=== PATIENT | female | born 1985 | race African-American/Black ===

== ENCOUNTER 2016-07-24 09:14 | Emergency (ER) | payer BC, OTHER ==
[2008-08-06 23:35] VITALS: BP 109/62
[~2016-07-24] VITALS: Ht 162.6 cm; Wt 61.8 kg
[~2016-07-24 09:14] MED LIST: ACETAMINOPHEN W1 TA6 PO; ALBUTEROL0.09 MG/A1 IH; AMITIZA24 MCG PO; ATENOLOL50 MG PO; BCP TD; BIRTH CONTROL PILL; BIRTH CONTROL PILLS; COUMADIN 22.5 MG/TAB PO; DARVOCET-N-101 UDTAB PO; EYE DROPS; FLEXERIL; HYDROCODONE/APAP; MIRALAX 17GM PK1 PKT PO; MIRCETTE; NORCO 325 MG-51 TAB PO; PROAIR HFA0.09 MG/AC IH; TYLENOL 500MG500 MG PO; VENTOLIN0.09 MG IH; VERAPAMIL; ZYRTEC; ZYRTEC 10MG PO; [UNRECOGNIZED DRUG - OTHER]; magic mouthwash
[2016-07-24 09:23] VITALS: TEMP 98.1
[2016-07-24] MEDS ORDERED: ZOLOFT 50MG50 MG PO (09:26)
[2016-07-24] MEDS ORDERED: ADDERALL XR 10M10 MG PO (09:26)
[2016-07-24] MEDS ORDERED: VERAPAMIL PO (09:27)
[2016-07-24] MEDS ORDERED: MAG-OX 400400 MG/TAB PO (09:27)
[2016-07-24 10:26] LABS: BASO % 0.6 % (0.0-2.0); EOS # 0.1 (0.0-0.7); EOS % 2.7 % (0-4.0); GRAN # 2.9 (1.4-6.5); GRAN % 60.1 % (42.2-75.2); HEMATOCRIT 35.9 % (37.0-47.0); HEMOGLOBIN 11.8 g/dl (12.5-16.0); LYMPH # 1.4 (1.2-3.4); LYMPH % 29.3 % (20.0-51.0); MEAN CELL VOLUME 92 fl (80.0-100.0); MEAN CORPUSCULAR HEMOGLOBIN 30 pg (27.0-31.0); MEAN CORPUSCULAR HGB CONC 33 g/dl (33.0-37.0); MEAN PLATELET VOLUME 9.9 fl (7.4-10.4); MONO # 0.3 (0.1-0.6); MONO % 7.1 % (1.7-9.3); PLATELET COUNT 241 K/mm3 (130-400); RED BLOOD COUNT 3.89 M/mm3 (4.10-5.30); REDCELL DISTRIBUTION WIDTH-CV 13.5 % (11.5-14.5); WHITE BLOOD COUNT 4.8 K/mm3 (4.8-10.8)
[2016-07-24 10:31] LABS: ADJUSTED CALCIUM 9.4 mg/dL (8.4-10.2); ALBUMIN 3.9 gm/dL (3.5-5.0); BILIRUBIN,TOTAL 0.7 mg/dL (0.0-1.0); CALCIUM 9.3 mg/dL (8.4-10.2); CREATININE, serum 0.76 mg/dL (0.52-1.25); TOTAL PROTEIN 7.5 gm/dL (6.4-8.2)
[2016-07-24 10:34] LABS: PH 5 (5-8); SQUAMOUS EPITHELIAL 0-2 /hpf; URINE APPEARANCE Hazy; URINE BACTERIA None Seen /hpf; URINE BILIRUBIN Negative (NEGATIVE); URINE BLOOD 3+ (NEGATIVE); URINE COLOR Yellow; URINE GLUCOSE Negative (NEGATIVE); URINE KETONE Negative (NEGATIVE); URINE RBC >50 /hpf; URINE UROBILINOGEN Negative (NEGATIVE); URINE WBC 0-2 /hpf
[2016-07-24 12:27] VITALS: BP 122/75; PULSE 78
== END 2016-07-24 12:35 | disposition home or self-care (01) ==
LOC: COL.ER 09:14
PROVIDERS: Emergency Medicine
DX: K59.00 Constipation, unspecified (principal)
CPT/HCPCS: J7030; Q9967

== ENCOUNTER → 2019-04-07 | Outpatient (CLI) | payer BC ==
[~2019-04-07] MED LIST changes: +ADDERALL XR 10M10 MG PO; +MAG-OX 400400 MG/TAB PO; +VERAPAMIL PO; +ZOLOFT 50MG50 MG PO
== END ==
LOC: COL.RAD 12:05
DX: G43.909 Migraine, unspecified, not intractable, without status migrainosus (principal)

== ENCOUNTER → 2019-11-26 | Outpatient (CLI) | payer BC | LOC: COL.LAB 07:31 | DX: R51 Headache (principal); R06.02 Shortness of breath; R53.83 Other fatigue; Z20.828 Contact with and (suspected) exposure to other viral communicable diseases ==

== ENCOUNTER → 2020-01-04 | Outpatient (CLI) | payer BC | LOC: COL.LAB 08:18 | DX: Z20.828 Contact with and (suspected) exposure to other viral communicable diseases (principal); R51 Headache; R53.1 Weakness; R53.83 Other fatigue ==

== ENCOUNTER → 2020-02-18 | Outpatient (CLI) | payer BC | LOC: COL.LAB 11:43 | DX: R51 Headache (principal); R53.1 Weakness; R53.83 Other fatigue; Z20.828 Contact with and (suspected) exposure to other viral communicable diseases ==

== ENCOUNTER 2020-03-20 18:08 | Emergency (ER) | payer SELFPAY ==
[2008-08-06 23:35] VITALS: BP 109/62
[~2020-03-20] VITALS: Ht 162.6 cm; Wt 75.0 kg
[2020-03-20] MEDS ORDERED: ZANAFLEX2 MG PO (19:09)
[2020-03-20 20:00] VITALS: BP 132/74; PULSE 84; TEMP 97.6
== END 2020-03-20 20:03 | disposition home or self-care (01) ==
LOC: COL.ER 18:08
DX: M25.511 Pain in right shoulder (principal); M62.838 Other muscle spasm; R51.9 Headache, unspecified; F32.9 Major depressive disorder, single episode, unspecified; F41.9 Anxiety disorder, unspecified; J45.909 Unspecified asthma, uncomplicated; F90.9 Attention-deficit hyperactivity disorder, unspecified type; R40.2410 Glasgow coma scale score 13-15, unspecified time; V49.88XA Car occupant (driver) (passenger) injured in other specified transport accidents, initial encounter
CPT/HCPCS: J1885

== ENCOUNTER → 2020-07-18 | Outpatient (CLI) | payer BC ==
[~2020-07-18] MED LIST changes: +CEFTIN500 MG PO; +PERCOCET 325 MG1 TA2 PO; +ROBAXIN 50500 MG/TAB PO; +TYLENOL 325MG325 MG PO; +ZANAFLEX2 MG PO; +ZYRTEC 10MG10 MG PO
== END ==
LOC: COL.RAD 13:40
DX: R55 Syncope and collapse (principal)
CPT/HCPCS: A9585

== ENCOUNTER 2020-08-20 03:43 | Emergency (ER) | payer MEDICAID ==
[2008-08-06 23:35] VITALS: BP 109/62
[~2020-08-20] VITALS: Ht 162.6 cm; Wt 79.1 kg
[~2020-08-20 03:43] MED LIST changes: -CEFTIN500 MG PO; -PERCOCET 325 MG1 TA2 PO; -ROBAXIN 50500 MG/TAB PO; -TYLENOL 325MG325 MG PO; -ZYRTEC 10MG10 MG PO
[2020-08-20] MEDS ORDERED: ZYRTEC 10MG10 MG PO (04:13)
[2020-08-20 04:20] LABS: BASO % 0.5 % (0.0-2.0); EOS # 0.2 (0.0-0.7); EOS % 2.1 % (0-4.0); GRAN # 4.9 (1.4-6.5); GRAN % 60.7 % (42.2-75.2); HEMATOCRIT 38.2 % (37.0-47.0); HEMOGLOBIN 12.2 g/dl (12.5-16.0); LYMPH # 2.3 (1.2-3.4); LYMPH % 28.8 % (20.0-51.0); MEAN CELL VOLUME 94 fl (80.0-100.0); MEAN CORPUSCULAR HEMOGLOBIN 30 pg (27.0-31.0); MEAN CORPUSCULAR HGB CONC 32 g/dl (33.0-37.0); MEAN PLATELET VOLUME 9.4 fl (7.4-10.4); MONO # 0.6 (0.1-0.6); MONO % 7.7 % (1.7-9.3); PLATELET COUNT 277 K/mm3 (130-400); RED BLOOD COUNT 4.07 M/mm3 (4.10-5.30)
[2020-08-20 04:32] LABS: CALCIUM 9.2 mg/dL (8.4-10.2); CREATININE, serum 0.79 (0.52-1.25); POTASSIUM 3.9 mmol/L (3.4-5.0)
[2020-08-20] MEDS ORDERED: ROBAXIN 50500 MG/TAB PO (05:34)
[2020-08-20] MEDS ORDERED: TYLENOL 325MG325 MG PO (05:34)
[2020-08-20 05:53] VITALS: BP 103/61; PULSE 87; TEMP 98.3
== END 2020-08-20 05:53 | disposition home or self-care (01) ==
LOC: COL.ER 03:43
PROVIDERS: Emergency Medicine
DX: S00.03XA Contusion of scalp, initial encounter (principal); R55 Syncope and collapse; Z88.8 Allergy status to other drugs, medicaments and biological substances; Z88.1 Allergy status to other antibiotic agents; Z88.6 Allergy status to analgesic agent; W19.XXXA Unspecified fall, initial encounter
CPT/HCPCS: J1885; J2060; J2405; J7030

== ENCOUNTER 2020-10-10 21:17 | Emergency (ER) | payer MEDICAID ==
[2008-08-06 23:35] VITALS: BP 109/62
[~2020-10-10] VITALS: Ht 162.6 cm; Wt 79.5 kg
[~2020-10-10 21:17] MED LIST changes: +ROBAXIN 50500 MG/TAB PO; +TYLENOL 325MG325 MG PO; +ZYRTEC 10MG10 MG PO
[2020-10-10 21:20] VITALS: TEMP 98
[2020-10-10 21:58] LABS: BASO % 0.5 % (0.0-2.0); EOS # 0.2 (0.0-0.7); EOS % 2.4 % (0-4.0); GRAN # 5.2 (1.4-6.5); GRAN % 62.8 % (42.2-75.2); HEMATOCRIT 37.2 % (37.0-47.0); HEMOGLOBIN 12.4 g/dl (12.5-16.0); LYMPH # 2.3 (1.2-3.4); MEAN CELL VOLUME 90 fl (80.0-100.0); MEAN CORPUSCULAR HEMOGLOBIN 30 pg (27.0-31.0); MEAN CORPUSCULAR HGB CONC 33 g/dl (33.0-37.0); MEAN PLATELET VOLUME 9.3 fl (7.4-10.4); MONO # 0.5 (0.1-0.6); MONO % 6.1 % (1.7-9.3); PLATELET COUNT 315 K/mm3 (130-400); RED BLOOD COUNT 4.14 M/mm3 (4.10-5.30); REDCELL DISTRIBUTION WIDTH-CV 13.4 % (11.5-14.5)
[2020-10-10 22:10] LABS: ALANINE AMINOTRANSFERASE 12 U/L (4-34); ALBUMIN 4.4 gm/dL (3.5-5.0); ALKALINE PHOSPHATASE 81 U/L (50-136); ANION GAP 8 mmol/L (7-16); AST,SGOT 30 U/L (15-37); BILIRUBIN,TOTAL 0.4 mg/dL (0.0-1.0); BLOOD UREA NITROGEN 12 mg/dL (7-17); CALCIUM 9.1 mg/dL (8.4-10.2); CARBON DIOXIDE 25 mmol/L (22-30); CHLORIDE 106 mmol/L (98-107); CREATININE, serum 0.75 (0.52-1.25); GLUCOSE 91 mg/dL (74-106); LIPASE 86 U/L (23-300); POTASSIUM 4.2 mmol/L (3.4-5.0); SODIUM 139 mmol/L (137-145); TOTAL PROTEIN 8.3 gm/dL (6.4-8.2)
[2020-10-10 22:12] LABS: COLLECTION METHOD CLEAN CATCH
[2020-10-10 22:19] LABS: MUCOUS Present /lpf; PH 5 (5-8); SQUAMOUS EPITHELIAL 0-2 /hpf; URINE APPEARANCE Clear; URINE BACTERIA None Seen /hpf; URINE BILIRUBIN Negative (NEGATIVE); URINE BLOOD 2+ (NEGATIVE); URINE COLOR Yellow; URINE GLUCOSE Negative (NEGATIVE); URINE KETONE Negative (NEGATIVE); URINE LEUKOCYTE ESTERASE Negative (NEGATIVE); URINE NITRATE Negative (NEGATIVE); URINE PROTEIN(semi-quant) Negative (NEGATIVE); URINE UROBILINOGEN Negative (NEGATIVE)
[2020-10-10 23:28] LABS: TROPONIN-I < 0.012 ng/mL (0.000-0.035)
[2020-10-10 23:48] VITALS: BP 128/61; PULSE 81
== END 2020-10-10 23:48 | disposition home or self-care (01) ==
LOC: COL.ER 21:17
PROVIDERS: Nurse Practitioner Primary Care
DX: R07.89 Other chest pain (principal); R06.02 Shortness of breath; R00.0 Tachycardia, unspecified; J45.909 Unspecified asthma, uncomplicated; G89.29 Other chronic pain; M54.9 Dorsalgia, unspecified; G43.909 Migraine, unspecified, not intractable, without status migrainosus; F32.9 Major depressive disorder, single episode, unspecified; F41.9 Anxiety disorder, unspecified; Z88.8 Allergy status to other drugs, medicaments and biological substances; Z88.1 Allergy status to other antibiotic agents; Z88.6 Allergy status to analgesic agent; Z91.040 Latex allergy status
CPT/HCPCS: J1885; J7030

== ENCOUNTER 2021-01-10 16:58 | Emergency (ER) | payer MEDICAID ==
[~2021-01-10] VITALS: Ht 162.6 cm; Wt 79.5 kg
[2021-01-10 17:11] VITALS: TEMP 98.4
[2021-01-10 18:20] VITALS: BP 114/64; PULSE 71
== END 2021-01-10 18:21 | disposition home or self-care (01) ==
LOC: COL.ER 16:58
DX: M79.632 Pain in left forearm (principal); M54.2 Cervicalgia; V48.0XXA Car driver injured in noncollision transport accident in nontraffic accident, initial encounter

== ENCOUNTER 2021-02-22 20:39 | Emergency (ER) | payer MEDICAID ==
[~2021-02-22] VITALS: Ht 162.6 cm; Wt 79.5 kg
[2021-02-22 22:31] LABS: COLLECTION METHOD CLEAN CATCH
[2021-02-22 22:34] LABS: BASO % 0.4 % (0.0-2.0); EOS # 0.1 (0.0-0.7); EOS % 1.7 % (0-4.0); GRAN # 4.8 (1.4-6.5); GRAN % 58.1 % (42.2-75.2); HEMATOCRIT 37.9 % (37.0-47.0); HEMOGLOBIN 12.9 g/dl (12.5-16.0); LYMPH # 2.8 (1.2-3.4); LYMPH % 33.7 % (20.0-51.0); MEAN CELL VOLUME 88 fl (80.0-100.0); MEAN CORPUSCULAR HEMOGLOBIN 30 pg (27.0-31.0); MEAN CORPUSCULAR HGB CONC 34 g/dl (33.0-37.0); MEAN PLATELET VOLUME 9.2 fl (7.4-10.4); MONO # 0.5 (0.1-0.6); MONO % 5.9 % (1.7-9.3); PLATELET COUNT 323 K/mm3 (130-400); RED BLOOD COUNT 4.31 M/mm3 (4.10-5.30); REDCELL DISTRIBUTION WIDTH-CV 14.2 % (11.5-14.5)
[2021-02-22 22:38] LABS: MUCOUS Present /lpf; PH 5 (5-8); URINE APPEARANCE Cloudy; URINE BACTERIA None Seen /hpf; URINE BILIRUBIN Negative (NEGATIVE); URINE BLOOD 2+ (NEGATIVE); URINE COLOR Yellow; URINE GLUCOSE Negative (NEGATIVE); URINE KETONE 1+ (NEGATIVE); URINE LEUKOCYTE ESTERASE 3+ (NEGATIVE); URINE NITRATE Negative (NEGATIVE); URINE PROTEIN(semi-quant) Negative (NEGATIVE); URINE UROBILINOGEN Negative (NEGATIVE)
[2021-02-22 22:57] LABS: ALBUMIN 4.1 gm/dL (3.5-5.0); C-REACTIVE PROTEIN 0.7 mg/dL (0.00-0.50); CALCIUM 9.6 mg/dL (8.4-10.2); CREATININE, serum 0.81 mg/dL (0.57-1.11); POTASSIUM 3.7 mmol/L (3.5-4.5)
[2021-02-22 23:07] LABS: BILIRUBIN,TOTAL 0.7 mg/dL (0.2-1.2)
[2021-02-23] MEDS ORDERED: CEFTIN500 MG PO (00:55)
[2021-02-23] MEDS ORDERED: PERCOCET 325 MG1 TA2 PO (00:55)
[2021-02-23 01:59] VITALS: BP 119/79; PULSE 89; TEMP 97.7
== END 2021-02-23 02:06 | disposition home or self-care (01) ==
LOC: COL.ER 20:39
PROVIDERS: Physician Assistant
DX: N20.0 Calculus of kidney (principal); G89.29 Other chronic pain; Z88.6 Allergy status to analgesic agent; Z86.718 Personal history of other venous thrombosis and embolism
CPT/HCPCS: J0696; J1885; J2270; J7030; Q9967

== ENCOUNTER 2021-07-11 08:40 | Emergency (ER) | payer MEDICAID ==
[~2021-07-11] VITALS: Ht 160 cm; Wt 79.5 kg
[~2021-07-11 08:40] MED LIST changes: +CEFTIN500 MG PO; +PERCOCET 325 MG1 TA2 PO
[2021-07-11 08:43] VITALS: TEMP 98.3
[2021-07-11 08:59] LABS: COLLECTION METHOD CLEAN CATCH
[2021-07-11 09:09] LABS: URINE APPEARANCE Clear (CLEAR/HAZY); URINE COLOR Yellow (YELLOW)
[2021-07-11 09:10] LABS: PH 6 (5-8); URINE BILIRUBIN Negative (NEGATIVE); URINE BLOOD Negative (NEGATIVE); URINE GLUCOSE Negative (NEGATIVE); URINE KETONE Negative (NEGATIVE); URINE NITRATE Negative (NEGATIVE); URINE PROTEIN(semi-quant) Negative (NEGATIVE); URINE UROBILINOGEN Negative (NEGATIVE)
[2021-07-11 09:12] LABS: URINE LEUKOCYTE ESTERASE 1+ (NEGATIVE)
[2021-07-11 09:15] LABS: MUCOUS Present (NOT PRESENT); SQUAMOUS EPITHELIAL 0-2 /hpf (0-10); URINE BACTERIA None Seen /hpf (NONE SEEN)
[2021-07-11 09:47] LABS: BASO % 0.2 % (0.0-2.0); EOS # 0.1 K/mm3 (0.0-0.7); EOS % 1.4 % (0.0-4.0); GRAN # 3.3 K/mm3 (1.4-6.5); GRAN % 63.7 % (42.2-75.2); HEMATOCRIT 37.4 % (37.0-47.0); HEMOGLOBIN 12.3 g/dl (12.5-16.0); LYMPH # 1.5 K/mm3 (1.2-3.4); LYMPH % 29.3 % (20.0-51.0); MEAN CELL VOLUME 88 fl (80.0-100.0); MEAN CORPUSCULAR HEMOGLOBIN 29 pg (27-31); MEAN CORPUSCULAR HGB CONC 33 g/dl (33.0-37.0); MEAN PLATELET VOLUME 9.2 fl (7.4-10.4); MONO # 0.3 K/mm3 (0.1-0.6); MONO % 5.2 % (1.7-9.3); PLATELET COUNT 306 K/mm3 (130-400); RED BLOOD COUNT 4.27 M/mm3 (4.10-5.30); REDCELL DISTRIBUTION WIDTH-CV 15.1 % (11.5-14.5)
[2021-07-11 10:04] LABS: ALBUMIN 3.7 gm/dL (3.5-5.0); BILIRUBIN,TOTAL 0.4 mg/dL (0.2-1.2); C-REACTIVE PROTEIN 0.76 mg/dL (0.00-0.50); CALCIUM 9.1 mg/dL (8.4-10.2); CREATININE, serum 0.76 mg/dL (0.57-1.11); POTASSIUM 4.1 mmol/L (3.5-4.5); TOTAL PROTEIN 7.1 gm/dL (6.2-8.1)
[2021-07-11] MEDS ORDERED: OMNICEF 300MG300 MG PO (10:54)
[2021-07-11] MEDS ORDERED: PERCOCET 325 MG1 TA2 PO (10:54)
[2021-07-11 11:12] VITALS: BP 114/81; PULSE 74
== END 2021-07-11 11:15 | disposition home or self-care (01) ==
LOC: COL.ER 08:40
PROVIDERS: Family Medicine
DX: N39.0 Urinary tract infection, site not specified (principal); Z87.442 Personal history of urinary calculi; Z88.1 Allergy status to other antibiotic agents; Z88.5 Allergy status to narcotic agent; Z91.040 Latex allergy status
CPT/HCPCS: J2270; J2405; J7120; Q9967

== ENCOUNTER → 2023-05-07 | Outpatient (CLI) | payer MEDICAID ==
[~2023-05-07] MED LIST changes: +OMNICEF 300MG300 MG PO; +TORADOL 10MG TA10 MG PO; +ZOFRAN ODT4 MG PO
== END ==
LOC: COL.RAD 06:02
DX: R93.89 Abnormal findings on diagnostic imaging of other specified body structures (principal); N93.9 Abnormal uterine and vaginal bleeding, unspecified